=== PATIENT | female | born 1955 | race Caucasian/White ===

== ENCOUNTER 2020-11-09 11:42 | Emergency (ER) | payer BC, MEDICARE ==
[2020-11-09] MEDS ORDERED: Sodium Chloride 0.9% 10 ML Syringe FLUSH PRN (11:46)
--- NOTE | 2020-11-09 12:35 | CT ---
INDICATION: Ocular aura on Saturday and Saturday, slight confusion on Saturday. CT HEAD WITHOUT CONTRAST: Spiral 3.75 mm axial sections were obtained through the brain without contrast with axial, sagittal and coronal reconstructions 11/09/20 - no comparisons. Total exam DLP was 1218.89 mGy-cm. The orbits appear to be intact. Paranasal sinuses and mastoid air cells appear to be well aerated. No cranial abnormality was demonstrated. No shift of midline structures, ventricular abnormalities, or definite abnormal areas of density were identified. Calcifications are noted in the right MCA and ICAs bilaterally to a mild degree. No bleeding site of hematoma was seen. Bishop-white matter interface appeared normal. IMPRESSION: Except for minimal arterial calcifications, normal CT brain without contrast - no acute intracranial abnormality. Report was called to ER personnel for Dr. Nino at 1207 hours, 11/09/20. TALA
--- NOTE | 2020-11-09 12:53 | EDM.PDOC ---
ED HPI GENERAL MEDICAL PROBLEM - General Chief Complaint: Neuro Symptoms/Deficits Stated Complaint: ocular aura Time Seen by Provider: 11/09/20 11:45 Source of Information: Reports: Patient History Limitations: Reports: No Limitations - History of Present Illness INITIAL COMMENTS - FREE TEXT/NARRATIVE: Patient presented to the ED from the clinic because of ocular aura on the left eye. She described it as seeing rays of lights, dark spots. There is no slurred speech, weakness of the arms and legs. She was also found to be hypertensive but she said she is just stressed out. - Related Data Allergies Allergy/AdvReac Type Severity Reaction Status Date / Time metronidazole [From Flagyl] Allergy Anxiety Verified 11/09/20 12:19 oxybutynin [From Ditropan] Allergy Other Verified 11/09/20 12:19 Home Meds: Home Meds Levothyroxine [Synthroid] 50 mcg PO DAILY 11/09/20 [History] Past Medical History HEENT History: Reports: Impaired Vision, Other (See Below) Other HEENT History: Occular aura Cardiovascular History: Reports: Other (See Below) Other Cardiovascular History: High cholesterol although has not taken any medications for it. Musculoskeletal History: Reports: Other (See Below) Other Musculoskeletal History: Chronic neck pain Neurological History: Reports: Other (See Below) Other Neuro History: Chronic neck pain Psychiatric History: Reports: Anxiety Endocrine/Metabolic History: Reports: Other (See Below) Other Endocrine/Metabolic History: Hashimotos - Past Surgical History GI Surgical History: Reports: Colonoscopy, Polypectomy Social & Family History - Tobacco Use Tobacco Use Status *Q: Never Tobacco User - Caffeine Use Caffeine Use: Reports: Coffee - Recreational Drug Use Recreational Drug Use: No ED ROS GENERAL - Review of Systems Review Of Systems: See Below Constitutional: Reports: No Symptoms HEENT: Reports: Other (ocular aura-OD) Respiratory: Reports: No Symptoms Cardiovascular: Reports: No Symptoms Endocrine: Reports: No Symptoms GI/Abdominal: Reports: No Symptoms : Reports: No Symptoms Musculoskeletal: Reports: No Symptoms Skin: Reports: No Symptoms Neurological: Reports: No Symptoms Psychiatric: Reports: No Symptoms ED EXAM, GENERAL - Physical Exam Exam: See Below Exam Limited By: No Limitations General Appearance: Alert, No Apparent Distress Eye Exam: Bilateral Eye: PERRL Ears: Normal External Exam, Normal Canal Nose: Normal Inspection, Normal Mucosa, No Blood Throat/Mouth: Normal Inspection, Normal Lips, Normal Teeth Head: Atraumatic, Normocephalic Neck: Normal Inspection, Supple, Non-Tender, Full Range of Motion Respiratory/Chest: No Respiratory Distress, Lungs Clear, Normal Breath Sounds, No Accessory Muscle Use, Chest Non-Tender Cardiovascular: Normal Peripheral Pulses, Regular Rate, Rhythm, No Edema, No Gallop, No JVD, No Murmur, No Rub GI/Abdominal: Normal Bowel Sounds, Soft, Non-Tender, No Organomegaly Back Exam: Normal Inspection, Full Range of Motion Extremities: Normal Inspection, Normal Range of Motion, Non-Tender, No Pedal Edema, Normal Capillary Refill Neurological: Alert, Oriented, CN II-XII Intact, Normal Cognition, Normal Gait, Normal Reflexes, No Motor/Sensory Deficits Psychiatric: Normal Affect Skin Exam: Warm #1 Interpretation EKG Date: 11/09/20 Time: 11:51 Rhythm: NSR Rate (Beats/Min): 88 [place]: Normal P-Wave: Present QRS: Normal ST-T: Normal QT: Normal Comparison: NA - No Prior EKG EKG Interpretation Comments: NSR PVC's Course - Vital Signs Text/Narrative:: Labs/EKG/CXR/Head CT result was reviewed and discussed with patient Last Recorded V/S: Last Vital Signs Temp 36.7 C 11/09/20 11:45 Pulse 93 11/09/20 11:45 Resp 15 11/09/20 11:45 BP 178/102 H 11/09/20 11:45 Pulse Ox 100 11/09/20 11:45 - Orders/Labs/Meds Orders: Active Orders 24 hr Category Date Time Status Blood Glucose Check, Bedside [RC] ONETIME Care 11/09/20 11:45 Active EKG Documentation Completion [RC] ASDIRECTED Care 11/09/20 11:47 Active Sodium Chloride 0.9% [Saline Flush] Med 11/09/20 11:46 Active 10 ml FLUSH ASDIRECTED PRN Saline Lock Insert [OM.PC] Routine Oth 11/09/20 11:46 Ordered EKG 12 Lead [EK] Routine Ther 11/09/20 11:46 Ordered Medication Orders Sodium Chloride (Sodium Chloride 0.9% 10 Ml Syringe) 10 ml FLUSH ASDIRECTED PRN PRN Reason: Keep Vein Open Last Admin: 11/09/20 12:05 Dose: 10 ml Documented by: MAHSA Labs: Laboratory Tests 11/09/20 11/09/20 11/09/20 Range/Units 11:40 11:40 11:40 WBC 5.3 (3.0-10.3) x10-3/uL RBC 4.63 (3.60-5.20) x10(6)uL Hgb 13.7 (11.4-15.5) g/dL Hct 41.2 (34.2-48.2) % MCV 89.0 (76.7-100.5) fL MCH 29.5 (23.9-33.9) pg MCHC 33.2 (31.9-34.8) g/dL RDW 14.0 (12.3-16.5) % Plt Count 313 (151-488) x10(3)uL MPV 8.3 (7.1-12.4) fL Neut % (Auto) 54.5 (30.8-76.2) % Lymph % (Auto) 34.2 (18.4-52.1) % Cherry % (Auto) 8.9 (4.4-15.7) % Eos % (Auto) 1.7 (0.6-8.1) % Baso % (Auto) 0.7 (0.2-1.5) % Neut # (Auto) 2.9 (1.5-6.3) x10-3/uL Lymph # (Auto) 1.8 (1.0-4.4) x10-3/uL Cherry # (Auto) 0.5 (0.3-1.0) x10-3/uL Eos # (Auto) 0.1 (0.0-0.8) x10-3/uL Baso # (Auto) 0.0 (0.0-0.1) x10-3/uL PT (9.0-11.1) sec INR (1.00-1.24) APTT (24.4-33.2) SECONDS Sodium 140 (135-145) mmol/L Potassium 3.9 (3.5-5.3) mmol/L Chloride 101 (100-110) mmol/L Carbon Dioxide 28 (21-32) mmol/L BUN 12 (7-18) mg/dL Creatinine 0.9 (0.55-1.02) mg/dL Est Cr Clr Drug Dosing TNP Estimated GFR (MDRD) > 60 (>60) BUN/Creatinine Ratio 13.3 (9-20) Glucose 103 (80-116) mg/dL Calcium 9.0 (8.6-10.2) mg/dL Total Bilirubin 0.5 (0.1-1.3) mg/dL AST 21 (5-25) IU/L ALT 24 (12-36) U/L Alkaline Phosphatase 61 (56-112) IU/L Troponin I 5.9 (4.0-60.3) pg/mL Total Protein 7.8 (6.0-8.0) g/dL Albumin 3.9 (3.2-4.6) g/dL Globulin 3.9 g/dL Albumin/Globulin Ratio 1.0 05/05/21 Range/Units 11:40 WBC (3.0-10.3) x10-3/uL RBC (3.60-5.20) x10(6)uL Hgb (11.4-15.5) g/dL Hct (34.2-48.2) % MCV (76.7-100.5) fL MCH (23.9-33.9) pg MCHC (31.9-34.8) g/dL RDW (12.3-16.5) % Plt Count (151-488) x10(3)uL MPV (7.1-12.4) fL Neut % (Auto) (30.8-76.2) % Lymph % (Auto) (18.4-52.1) % Cherry % (Auto) (4.4-15.7) % Eos % (Auto) (0.6-8.1) % Baso % (Auto) (0.2-1.5) % Neut # (Auto) (1.5-6.3) x10-3/uL Lymph # (Auto) (1.0-4.4) x10-3/uL Cherry # (Auto) (0.3-1.0) x10-3/uL Eos # (Auto) (0.0-0.8) x10-3/uL Baso # (Auto) (0.0-0.1) x10-3/uL PT 10.4 (9.0-11.1) sec INR 0.96 L (1.00-1.24) APTT 25.0 (24.4-33.2) SECONDS Sodium (135-145) mmol/L Potassium (3.5-5.3) mmol/L Chloride (100-110) mmol/L Carbon Dioxide (21-32) mmol/L BUN (7-18) mg/dL Creatinine (0.55-1.02) mg/dL Est Cr Clr Drug Dosing Estimated GFR (MDRD) (>60) BUN/Creatinine Ratio (9-20) Glucose (80-116) mg/dL Calcium (8.6-10.2) mg/dL Total Bilirubin (0.1-1.3) mg/dL AST (5-25) IU/L ALT (12-36) U/L Alkaline Phosphatase (56-112) IU/L Troponin I (4.0-60.3) pg/mL Total Protein (6.0-8.0) g/dL Albumin (3.2-4.6) g/dL Globulin g/dL Albumin/Globulin Ratio Meds: Medications Generic Name Dose Route Start Last Admin Trade Name Freq PRN Reason Stop Dose Admin Sodium Chloride 10 ml 11/09/20 11:46 11/09/20 12:05 Sodium Chloride 0.9% 10 Ml Syringe FLUSH 10 ml ASDIRECTED PRN Administration Keep Vein Open Departure - Departure Time of Disposition: 12:50 Disposition: Home, Self-Care 01 Condition: Good Clinical Impression: Hypertension, Visual aura - Discharge Information Instructions: Hypertension, Adult, [id number] Referrals: Oliva Mcmullen NP [Primary Care Provider] - Forms: ED Department Discharge Additional Instructions: Please read discharge instructions on hypertension and visual aura Low salt,low fat diet and exercise Keep your regular appointment to see your 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(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) Follow up as needed Sepsis Event Note (ED) - Evaluation Sepsis Screening Result: No Definite Risk - Focused Exam Vital Signs: Vital Signs Temp Pulse Resp BP Pulse Ox 11/09/20 11:45 36.7 C 93 15 178/102 H 100 - My Orders Last 24 Hours: My Active Orders 11/09/20 11:45 Blood Glucose Check, Bedside [RC] ONETIME 11/09/20 11:46 Sodium Chloride 0.9% [Saline Flush] 10 ml FLUSH ASDIRECTED PRN Saline Lock Insert [OM.PC] Routine EKG 12 Lead [EK] Routine 11/09/20 11:47 EKG Documentation Completion [RC] ASDIRECTED - Assessment/Plan Last 24 Hours: My Active Orders 11/09/20 11:45 Blood Glucose Check, Bedside [RC] ONETIME 11/09/20 11:46 Sodium Chloride 0.9% [Saline Flush] 10 ml FLUSH ASDIRECTED PRN Saline Lock Insert [OM.PC] Routine EKG 12 Lead [EK] Routine 11/09/20 11:47 EKG Documentation Completion [RC] ASDIRECTED
--- NOTE | 2020-11-09 17:43 | CR ---
CHEST ONE VIEW 7270 INDICATION: Vision problem. Portable AP upright view of the chest was obtained 11/09/2020--no comparison. The heart appears to be near the upper limits of normal in size or slightly enlarged, is emphasized by the AP positioning. The aorta is tortuous with calcification in the arch. Overlying EKG leads are noted. Dextroconcave scoliosis of the lower thoracic spine is suggested. An active infiltrate or effusion was not identified. IMPRESSION: No definite acute process. MTDD
== END 2020-11-09 12:40 | disposition home or self-care (01) ==
LOC: FB.ED 11:42
DX: H53.8 Other visual disturbances (principal); I10 Essential (primary) hypertension; D68.9 Coagulation defect, unspecified; Z88.8 Allergy status to other drugs, medicaments and biological substances; Z88.1 Allergy status to other antibiotic agents; Z79.899 Other long term (current) drug therapy
CPT/HCPCS: 36415; 70450; 71045; 80053; 82947; 84484; 85025; 85610; 85730; 93005; 99284-25